=== PATIENT | male | born 1990 | race Caucasian/White ===

== ENCOUNTER 2020-05-04 18:06 | Emergency (ER) | payer SELFPAY ==
[~2020-05-04] VITALS: Ht 177.8 cm; Wt 83.9 kg
[2020-05-04 19:04] VITALS: BP 134/94
[2020-05-04 19:50] LABS: BASOPHILS % (AUTO) 2.3 % (0.0-2.0); EOSINOPHILS % (AUTO) 0.2 % (0.0-3.0); HEMATOCRIT 42.2 % (42.0-52.0); HEMOGLOBIN 13.3 G/DL (14.2-18.0); MEAN CORPUSCULAR VOLUME 89 FL (80-99); MONOCYTES % (AUTO) 9.2 % (1.0-10.0); NEUTROPHILS % (AUTO) 52.2 % (45.0-75.0); PLATELET COUNT 342 K/UL (150-450); RED BLOOD COUNT 4.75 M/UL (4.70-6.10); RED CELL DISTRIBUTION WIDTH 12.2 % (11.6-14.8); WHITE BLOOD COUNT 6.6 K/UL (4.8-10.8)
--- NOTE | 2020-05-04 20:02 | Emergency Room Report ---
History of Present Illness General Chief Complaint: Nausea, Vomiting, and Diarrhea Source: Patient (Irene Salazar) Present Illness HPI 30 YO male presents to the ED c/o " having his mind controlled by his previous employer: [employer]." Pt. reports needing psychological help. He provides little detail, and is not cooperative. He denies pain. He denies previous Psych. Hx. He denies SI/HI. He denies drug use. He reports he did vomit once earlier today. Pt. denies hearing voices. He vaguely describes "being controlled electronically and feeling the electrical sensations". HPI and ROS are very limited due to pt. poor cooperation and lack of detail. At one point pt. pretended to be asleep/unresponsive. He did respond finally to painful stimuli- sternal rub. He shortly after was tearful and crying. (Irene Salazar) Allergies: Uncoded Allergies: ERYTHROMYCIN (Allergy, Unknown, 05/04/20) PENECILLIN (Allergy, Unknown, 05/04/20) COVID-19 Screening Contact w/high risk pt: No Experienced COVID-19 symptoms?: Yes COVID-19 Testing performed OFFICE SUPPORT SPECIALIST: No (Irene Salazar) Patient History Past Medical History: see triage record Past Surgical History: unable to obtain Pertinent Family History: unable to obtain Reviewed Nursing Documentation: PMH: Agreed; PSxH: Agreed (Irene Salazar) Nursing Documentation-PMH Past Medical History: No Stated History Hx Cardiac Problems: No Hx Hypertension: No Hx Pacemaker: No Hx Asthma: No Hx COPD: No Hx Diabetes: No Hx Cancer: No Hx Gastrointestinal Problems: No Hx Dialysis: No History Of Psychiatric Problem: No Hx Neurological Problems: No Hx Cerebrovascular Accident: No Hx Seizures: No (Irene Salazar) Review of Systems All Other Systems: limited (Irene Salazar) Physical Exam Vital Signs Date Time Temp Pulse Resp B/P (MAP) Pulse Ox O2 Delivery O2 Flow Rate FiO2 05/04/20 18:06 98.1 93 16 134/94 (107) 99 Room Air Sp02 EP Interpretation: reviewed, normal General Appearance: no apparent distress, alert, GCS 15, non-toxic Head: normocephalic, atraumatic Eyes: bilateral eye normal inspection, bilateral eye PERRL ENT: hearing grossly normal, normal voice Neck: full range of motion Respiratory: chest non-tender, lungs clear, normal breath sounds, speaking full sentences Cardiovascular #1: regular rate, rhythm, normal capillary refill Gastrointestinal: normal bowel sounds, non tender, soft Musculoskeletal: back normal, normal range of motion, gait/station normal, non- tender Neurologic: alert, motor strength/tone normal, oriented x3, sensory intact, responsive, speech normal Psychiatric: no suicidal/homicidal ideation, other - Delusions of [employer] controlling his brain. Skin: no rash, normal color, other - No evidence of self-inflicted wounds. (Irene Salazar) Medical Decision Making PA Attestation Dr. Enriquze Is my supervising Physician whom patient management has been discussed with. (Irene Salazar) Diagnostic Impression: Primary Impression: Behavior disturbance ER Course 30 YO male presents to the ED c/o " having his mind controlled by his previous employer: [employer]." Pt. reports needing psychological help. He provides little detail, and is not cooperative. He denies pain. He denies previous Psych. Hx. He denies SI/HI. He denies drug use. He reports he did vomit once earlier today. Pt. denies hearing voices. He vaguely describes "being controlled electronically and feeling the electrical sensations". HPI and ROS are very limited due to pt. poor cooperation and lack of detail. At one point pt. pretended to be asleep/unresponsive. He did respond finally to painful stimuli- sternal rub. He shortly after was tearful and crying. Pt is hyperactive, and has a very anxious and restless affect. Ddx considered but are not limited to OD, SI/HI, psychosis, UTI, intoxication Vital signs: are WNL, pt. is afebrile H&PE are most consistent with behavioral/mental health issue ORDERS: -CBC, CMP -UA: negative for infection see results attached. -UDS: -Salicylates and Acetaminophen - no acute intoxication. ED INTERVENTIONS: - DISPOSITION: Pt. to have psychiatric evaluation. He is medically cleared. Labs Test 05/04/20 19:30 05/05/20 13:50 White Blood Count 6.6 K/UL (4.8-10.8) Red Blood Count 4.75 M/UL (4.70-6.10) Hemoglobin 13.3 G/DL (14.2-18.0) Hematocrit 42.2 % (42.0-52.0) Mean Corpuscular Volume 89 FL (80-99) Mean Corpuscular Hemoglobin 28.0 PG (27.0-31.0) Mean Corpuscular Hemoglobin Concent 31.5 G/DL (32.0-36.0) Red Cell Distribution Width 12.2 % (11.6-14.8) Platelet Count 342 K/UL (150-450) Mean Platelet Volume 6.7 FL (6.5-10.1) Neutrophils (%) (Auto) 52.2 % (45.0-75.0) Lymphocytes (%) (Auto) 36.0 % (20.0-45.0) Monocytes (%) (Auto) 9.2 % (1.0-10.0) Eosinophils (%) (Auto) 0.2 % (0.0-3.0) Basophils (%) (Auto) 2.3 % (0.0-2.0) Sodium Level 139 MMOL/L (136-145) Potassium Level 3.9 MMOL/L (3.5-5.1) Chloride Level 102 MMOL/L (98-107) Carbon Dioxide Level 29 MMOL/L (21-32) Anion Gap 8 mmol/L (5-15) Blood Urea Nitrogen 16 mg/dL (7-18) Creatinine 1.0 MG/DL (0.55-1.30) Estimat Glomerular Filtration Rate > 60 mL/min (>60) Glucose Level 93 MG/DL (74-106) Calcium Level 9.5 MG/DL (8.5-10.1) Total Bilirubin 0.4 MG/DL (0.2-1.0) Aspartate Amino Transf (AST/SGOT) 51 U/L (15-37) Alanine Aminotransferase (ALT/SGPT) 37 U/L (12-78) Alkaline Phosphatase 71 U/L (46-116) Total Protein 7.9 G/DL (6.4-8.2) Albumin 4.0 G/DL (3.4-5.0) Globulin 3.9 g/dL Albumin/Globulin Ratio 1.0 (1.0-2.7) Salicylates Level 0.2 ug/mL (2.8-20) Urine Opiates Screen Negative (NEGATIVE) Acetaminophen Level < 2 MCG/ML (10-30) Urine Barbiturates Screen Negative (NEGATIVE) Phencyclidine (PCP) Screen Negative (NEGATIVE) Urine Amphetamines Screen Negative (NEGATIVE) Urine Benzodiazepines Screen Negative (NEGATIVE) Urine Cocaine Screen Negative (NEGATIVE) Urine Marijuana (THC) Screen Negative (NEGATIVE) Serum Alcohol < 3 mg/dL Urine Color Pale yellow Urine Appearance Clear Urine pH 7 (4.5-8.0) Urine Specific [place] 1.010 (1.005-1.035) Urine Protein Negative (NEGATIVE) Urine Glucose (UA) Negative (NEGATIVE) Urine Ketones 3+ (NEGATIVE) Urine Blood 1+ (NEGATIVE) Urine Nitrite Negative (NEGATIVE) Urine Bilirubin Negative (NEGATIVE) Urine Urobilinogen Normal MG/DL (0.0-1.0) Urine Leukocyte Esterase Negative (NEGATIVE) Urine RBC 2-4 /HPF (0 - 0) Urine WBC 2-4 /HPF (0 - 0) Urine Squamous Epithelial Cells Occasional /LPF Urine Bacteria Occasional /HPF (NONE) (Irene Salazar) ER Course Assumed care of the patient from previous provider approximately 2200 hrs. Briefly 30-year-old male presenting for hallucinations. He is medically cleared for transfer to psychiatric facility. He received Zyprexa. He is resting comfortably at this time. Awaiting for accepting facility. (Raul Estevez MD) Last Vital Signs Date Time Temp Pulse Resp B/P (MAP) Pulse Ox O2 Delivery O2 Flow Rate FiO2 05/04/20 19:04 98.1 78 16 134/94 99 Room Air (Irene Salazar) Disposition: PSYCH HOSP/UNIT Condition: Stable Signed Out To: Dr. Estevez (Irene Salazar) Referrals: NOT CHOSEN SUDHIR/,REFERRING (PCP) Irene Salazar May 04, 2020 20:02 Raul Estevez MD May 04, 2020 22:32
[2020-05-04 20:22] LABS: ANION GAP 8 mmol/L (5-15); BLOOD UREA NITROGEN 16 mg/dL (7-18); CALCIUM 9.5 MG/DL (8.5-10.1); CARBON DIOXIDE 29 MMOL/L (21-32); CHLORIDE 102 MMOL/L (98-107); POTASSIUM 3.9 MMOL/L (3.5-5.1); SODIUM 139 MMOL/L (136-145)
[2020-05-04 20:26] LABS: ALANINE AMINOTRANSFERASE 37 U/L (12-78); ALKALINE PHOSPHATASE 71 U/L (46-116); ASPARTATE AMINO TRANSFERASE 51 U/L (15-37); BILIRUBIN,TOTAL 0.4 MG/DL (0.2-1.0)
[2020-05-04] MEDS ORDERED: ZyPREXA Zydis 5mg tab ORAL ONE (20:45)
[2020-05-04 23:35] VITALS: BP 129/88
[2020-05-05 05:45] VITALS: BP 131/90
[2020-05-05 07:09] VITALS: BP 123/84
[2020-05-05 09:10] VITALS: BP 133/79
[2020-05-05 11:07] VITALS: BP 124/80
[2020-05-05 14:01] VITALS: BP 133/76
[2020-05-05 14:10] LABS: APPEARANCE,URINE CLEAR; BILIRUBIN, URINE NEGATIVE (NEGATIVE); COLOR,URINE PALE YELLOW; GLUCOSE, URINE (UA) NEGATIVE (NEGATIVE); KETONES,URINE 3+ (NEGATIVE); LEUKOCYTE ESTERASE ,URINE NEGATIVE (NEGATIVE); NITRITE,URINE NEGATIVE (NEGATIVE); PH,URINE 7 (4.5-8.0); PROTEIN,URINE NEGATIVE (NEGATIVE); UROBILINOGEN,URINE NORMAL MG/DL (0.0-1.0)
[2020-05-05 20:15] VITALS: BP 133/82
== END 2020-05-05 20:30 ==
LOC: EDBD 18:06 → EMR 18:49
DX: F91.9 Conduct disorder, unspecified (principal); Z88.0 Allergy status to penicillin; Z88.1 Allergy status to other antibiotic agents
CPT/HCPCS: 36415; 80053; 80307; 81003; 85025; 93005; 99283; G0480